=== PATIENT | male | born 1990 | race Caucasian/White ===

== ENCOUNTER 2018-06-25 21:49 | Emergency (ER) | payer BC ==
[2018-06-25] MEDS ORDERED: Ketorolac 60 MG/2 ML SDV IM ONE (21:57)
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
--- NOTE | 2018-06-27 13:18 | CR ---
EXAM DATE: 06/25/18 PATIENT'S AGE: 27 Patient: MARY ELLEN SHAW Facility: [place], [place] Site . Site : 1990 Study: XRay Shoulder Left [id number]/16/2018 10:09:45 PM Ordering Physician: Doctor Andrade Final Report: Indication: Trauma and pain Technique: Left shoulder 3 views. Comparison: None Findings: Bones: Alignment is normal. No fractures or bone lesions. Joint spaces: Unremarkable. Soft tissues: Unremarkable. Impression: No sign of acute injury. Dictated by Neo Epps MD @ Jun 25 2018 10:13PM (Electronic Signature) Report Signed by Proxy. SHUN
== END 2018-06-25 22:40 | disposition home or self-care (01) ==
LOC: MW.ED 21:49
DX: S40.012A Contusion of left shoulder, initial encounter (principal); V49.9XXA Car occupant (driver) (passenger) injured in unspecified traffic accident, initial encounter
CPT/HCPCS: 71045; 73030; 96372; 99284; J1885

== ENCOUNTER 2022-05-22 22:38 | Emergency (ER) | payer OTHER, BC ==
[2022-05-22] MEDS ORDERED: fentaNYL 50 MCG/ML SDV IVPUSH ONE (22:48)
[2022-05-22] MEDS ORDERED: Sodium Chloride 0.9% 1,000 ML IV SCH (23:00)
[2022-05-22 23:17] LABS: BLOOD UREA NITROGEN,BUN 16 mg/dL (7.0-18.0); CARBON DIOXIDE,CO2 23.4 mmol/L (21.0-32.0); CHLORIDE,CL 108 mmol/L (98-107); GLUCOSE RANDOM 107 mg/dL (74-106); POTASSIUM,K 3.8 mmol/L (3.5-5.1); SODIUM,NA 147 mmol/L (136-148)
[2022-05-22 23:18] LABS: ESTIMATED GFR 59 mL/min (>60)
[2022-05-23] MEDS ORDERED: Iopamidol 755 MG/ML 500 ML Multipack Bottle IVPUSH ONE (00:04)
[2022-05-23] MEDS ORDERED: fentaNYL 50 MCG/ML SDV IVPUSH ONE (00:49)
== END 2022-05-23 01:44 | disposition home or self-care (01) ==
LOC: MW.ED 22:38
DX: S39.012A Strain of muscle, fascia and tendon of lower back, initial encounter (principal); M25.512 Pain in left shoulder; Z20.822 Contact with and (suspected) exposure to COVID-19; Z79.899 Other long term (current) drug therapy; V89.2XXA Person injured in unspecified motor-vehicle accident, traffic, initial encounter; Y92.410 Unspecified street and highway as the place of occurrence of the external cause
CPT/HCPCS: 36415; 70450; 71045; 71260; 72125; 72128; 72131; 73000; 73030; 74177; 80053; 80307; 82550; 82947; 84484; 85025; 85610; 87635; 96361; 96374; 96376; 99284; J3010; J7030; Q9967; U0002

== ENCOUNTER 2023-06-04 23:41 | Emergency (ER) | payer OTHER, BC ==
[2023-06-04] MEDS ORDERED: Morphine 4 MG/ML Syringe IVPUSH ONE (23:50)
[2023-06-04] MEDS ORDERED: Sodium Chloride 0.9% 1,000 ML IV ONE (23:50)
[2023-06-04] MEDS ORDERED: Ondansetron 4 MG/2 ML SDV IVPUSH ONE (23:50)
[2023-06-04] MEDS ORDERED: Sodium Chloride 0.9% 10 ML Syringe FLUSH PRN (23:50)
[2023-06-04] MEDS ORDERED: Sodium Chloride 0.9% 2.5 ML Syringe FLUSH PRN (23:50)
[2023-06-05 00:04] LABS: BASOPHILS ABSOLUTE AUTO 0.1 K/uL (0.0-0.1); BASOPHILS PERCENT AUTO 0.8 % (0.0-1.5); EOSINOPHILS ABSOLUTE AUTO 0.2 K/uL (0.0-0.7); EOSINOPHILS PERCENT AUTO 2.5 % (0.0-7.0); HEMATOCRIT 45.1 % (38.0-50.0); HEMOGLOBIN 16.1 g/dL (13.0-17.0); LYMPHOCYTES ABSOLUTE AUTO 2.2 K/uL (0.6-2.4); LYMPHOCYTES PERCENT AUTO 26.9 % (16.0-40.0); MEAN CORPUSCULAR HEMOGLOBIN 29.9 pg (27.0-32.0); MEAN CORPUSCULAR HGB CONC 35.7 g/dL (31.0-37.0); MEAN CORPUSCULAR VOLUME 83.7 fL (80.0-98.0); MONOCYTES ABSOLUTE AUTO 0.6 K/uL (0.0-0.8); MONOCYTES PERCENT AUTO 7.5 % (0.0-15.0); NEUTROPHILS PERCENT AUTO 62.3 % (48.0-80.0); NRBC ABSOLUTE 0 K/uL; PLATELET COUNT,PLT 203 K/uL (150-400); RED BLOOD CELL COUNT 5.39 M/uL (4.50-5.90)
[2023-06-05 00:22] LABS: A/G RATIO 1.4 (0.9-1.6); ALBUMIN 4.2 g/dL (3.4-5.0); BILIRUBIN TOTAL 0.7 mg/dL (0.2-1.0); CARBON DIOXIDE,CO2 23.2 mmol/L (21.0-32.0); CREATININE 1.5 mg/dL (0.8-1.3); EST CRCL DRUG DOSING (CG) 78.32 mL/min; POTASSIUM,K 3.6 mmol/L (3.5-5.1); PROTEIN TOTAL,TP 7.1 g/dL (6.4-8.2)
[2023-06-05] MEDS ORDERED: Iopamidol 755 MG/ML 500 ML Multipack Bottle IVPUSH ONE (00:38)
[2023-06-05] MEDS ORDERED: Naloxone 0.4 MG/ML SDV IVPUSH PRN (01:07)
[2023-06-05] MEDS ORDERED: Morphine 4 MG/ML Syringe IVPUSH ONE (01:07)
[2023-06-05] MEDS ORDERED: Acetaminophen/HYDROcodone 325-5 MG Tab PO ONE (01:51)
== END 2023-06-05 02:11 | disposition home or self-care (01) ==
LOC: MW.ED 23:41
DX: S06.0X9A Concussion with loss of consciousness of unspecified duration, initial encounter (principal); M54.50 Low back pain, unspecified; G89.29 Other chronic pain; V43.92XA Unspecified car occupant injured in collision with other type car in traffic accident, initial encounter; Y92.410 Unspecified street and highway as the place of occurrence of the external cause
CPT/HCPCS: 36415; 70450; 71045; 71275; 72125; 73080; 73090; 74177; 80053; 83690; 84484; 85025; 86850; 86900; 86901; 96361; 96374; 96375; 96376; 99285; A9270; G0390; J2270; J2405; J3490; J7030; Q9967; 99291